=== PATIENT | male | born 1955 | race Asian ===

== ENCOUNTER 2017-06-05 20:52 | Inpatient (IN) | payer OTHER ==
[2017-06-05 22:54] LABS: ADD MAN DIFF? NO
[2017-06-05 22:58] LABS: BASOPHILS % 0.2 % (0.0-2.0); EOSINOPHILS # 0.3 10^3/ul (0.0-0.5); EOSINOPHILS % 2.7 % (0.0-7.0); HEMATOCRIT 42.5 % (42.0-52.0); HEMOGLOBIN 14.9 g/dl (14.0-18.0); LYMPHOCYTES # 1.7 10^3/ul (0.8-2.9); LYMPHOCYTES % 18.5 % (15.0-51.0); MEAN CORPUSCULAR HEMOGLOBIN 31.6 pg (29.0-33.0); MEAN CORPUSCULAR HGB CONC 35.1 g/dl (32.0-37.0); MEAN PLATELET VOLUME 8.5 fl (7.4-10.4); MONOCYTE # 0.6 10^3/ul (0.3-0.9); MONOCYTES % 6.2 % (0.0-11.0); NEUTROPHIL # 6.8 10^3/ul (1.6-7.5); NEUTROPHILS % 72.1 % (39.0-77.0); PLATELET COUNT 259 10^3/UL (140-415); RED BLOOD COUNT 4.72 10^6/ul (4.70-6.10); RED CELL DISTRIBUTION WIDTH 12.2 % (11.5-14.5)
[2017-06-05 22:58] LABS: WHITE BLOOD COUNT 9.4 10^3/ul (4.8-10.8)
[2017-06-05 23:14] LABS: INR 0.94; PARTIAL THROMBOPLASTIN TIME 30.4 Sec (25.0-35.0); PROTIME 12.7 Sec (11.9-14.9)
[2017-06-05 23:16] LABS: ALANINE AMINOTRANSFERASE 44 IU/L (13-69); ALBUMIN 3.8 g/dl (3.3-4.9); ALKALINE PHOSPHATASE 101 IU/L (42-121); ANION GAP 10 (8-16); ASPARTATE AMINO TRANSFERASE 24 IU/L (15-46); BILIRUBIN,INDIRECT 0.5 mg/dl (0-1.1); BILIRUBIN,TOTAL 0.5 mg/dl (0.2-1.3); BLOOD UREA NITROGEN 7 mg/dl (7-20); CALCIUM 9.3 mg/dl (8.4-10.2); CARBON DIOXIDE 26 mmol/L (21-31); CHLORIDE 98 mmol/L (97-110); CREATININE 0.85 mg/dl (0.61-1.24); GLUCOSE 106 mg/dl (70-220); POTASSIUM 3.3 mmol/L (3.5-5.1); SODIUM 131 mmol/L (135-144); TOTAL PROTEIN 6.5 g/dl (6.1-8.1)
[2017-06-05 23:24] LABS: ADD UMIC NO; UR ASCORBIC ACID NEGATIVE (NEGATIVE); UR BILIRUBIN (Dip) NEGATIVE (NEGATIVE); UR BLOOD (Dip) NEGATIVE (NEGATIVE); UR CLARITY CLEAR (CLEAR); UR COLOR STRAW (YELLOW); UR GLUCOSE (Dip) NEGATIVE (NEGATIVE); UR KETONES (Dip) NEGATIVE (NEGATIVE); UR LEUKOCYTE ESTERASE (Dip) NEGATIVE Leu/ul (NEGATIVE); UR NITRITE (Dip) NEGATIVE (NEGATIVE); UR SPECIFIC GRAVITY (Dip) 1.002 (1.003-1.030); UR TOTAL PROTEIN (Dip) NEGATIVE (NEGATIVE); UR UROBILINOGEN (Dip) NEGATIVE (NEGATIVE)
[2017-06-06] MEDS ORDERED: ACETAMINOPHEN 325 MG TAB PO
[2017-06-06] MEDS ORDERED: DOCUSATE SODIUM 100 MG CAP PO
[2017-06-06] MEDS ORDERED: NACL 0.9% 3 ML SYG IV
[2017-06-06] MEDS ORDERED: BISACODYL (EC) 5 MG TAB PO
[2017-06-06] MEDS ORDERED: HYDROCODONE/APAP (5/325) TAB PO
[2017-06-06] MEDS ORDERED: ONDANSETRON 4 MG INJ IV
[2017-06-06 00:12] LABS: LACTIC ACID 1.7 mmol/L (0.5-2.0)
[2017-06-06] MEDS: POTASSIUM CHLORIDE (SR) 20 MEQ TAB PO (00:44)
[2017-06-06] MEDS: VANCOMYCIN 1 GM (PMX) 250 ML IVPB (00:44)
[2017-06-06 01:43] LABS: C-REACTIVE PROTEIN 2.7 mg/dl (0.0-0.9)
[2017-06-06 02:47] LABS: ERYTHROCYTE SEDIMENTATION RATE 10 mm/Hr (0-20)
[2017-06-06] MEDS: LEVOFLOXACIN 750MG/D5W (PMX) 150 ML IVPB (03:00)
[2017-06-06 04:15] LABS: LACTIC ACID 1.4 mmol/L (0.5-2.0)
[2017-06-06 06:13] LABS: ADD MAN DIFF? NO
[2017-06-06 06:17] LABS: BASOPHILS % 0.1 % (0.0-2.0); EOSINOPHILS # 0.2 10^3/ul (0.0-0.5); EOSINOPHILS % 2.2 % (0.0-7.0); HEMATOCRIT 44.1 % (42.0-52.0); HEMOGLOBIN 15.4 g/dl (14.0-18.0); LYMPHOCYTES # 1.2 10^3/ul (0.8-2.9); LYMPHOCYTES % 12.8 % (15.0-51.0); MEAN CORPUSCULAR HEMOGLOBIN 31.6 pg (29.0-33.0); MEAN CORPUSCULAR HGB CONC 34.9 g/dl (32.0-37.0); MEAN CORPUSCULAR VOLUME 90.6 fl (82.0-101.0); MEAN PLATELET VOLUME 8.6 fl (7.4-10.4); MONOCYTE # 0.5 10^3/ul (0.3-0.9); MONOCYTES % 5.2 % (0.0-11.0); NEUTROPHIL # 7.2 10^3/ul (1.6-7.5); NEUTROPHILS % 79.4 % (39.0-77.0); PLATELET COUNT 278 10^3/UL (140-415); RED BLOOD COUNT 4.87 10^6/ul (4.70-6.10); RED CELL DISTRIBUTION WIDTH 12.3 % (11.5-14.5)
[2017-06-06 06:36] LABS: LACTIC ACID 1.3 mmol/L (0.5-2.0)
[2017-06-06 06:44] LABS: ALANINE AMINOTRANSFERASE 38 IU/L (13-69); ALBUMIN 3.6 g/dl (3.3-4.9); ALBUMIN/GLOBULIN RATIO 1.28; ALKALINE PHOSPHATASE 100 IU/L (42-121); ANION GAP 14 (8-16); ASPARTATE AMINO TRANSFERASE 19 IU/L (15-46); BILIRUBIN,INDIRECT 0.6 mg/dl (0-1.1); BILIRUBIN,TOTAL 0.6 mg/dl (0.2-1.3); BLOOD UREA NITROGEN 6 mg/dl (7-20); CALCIUM 9.7 mg/dl (8.4-10.2); CARBON DIOXIDE 24 mmol/L (21-31); CHLORIDE 103 mmol/L (97-110); CHOL/HDL RATIO 4.8 RATIO; CHOLESTEROL 156 mg/dl (100-200); GLUCOSE 111 mg/dl (70-220); HDL CHOLESTEROL 32 mg/dl (30-78); LDL CHOLESTEROL,CALCULATED 106 mg/dl; MAGNESIUM 2.1 mg/dl (1.7-2.5); POTASSIUM 3.8 mmol/L (3.5-5.1); SODIUM 137 mmol/L (135-144); TOTAL PROTEIN 6.4 g/dl (6.1-8.1); TRIGLYCERIDES 89 mg/dl (0-149)
[2017-06-06 08:00] LABS: HEMOGLOBIN A1C 5.6 % (0-5.9)
[2017-06-06] MEDS ORDERED: VANCOMYCIN IV PER PHARMACY XX (08:30)
[2017-06-06 08:48] LABS: LACTIC ACID 1.7 mmol/L (0.5-2.0)
[2017-06-06] MEDS: METHYLPREDNISOLONE 40 MG INJ IV ×2 (09:59→20:31)
[2017-06-06] MEDS: VANCOMYCIN 750 MG in DEXTROSE 5% 150 ML IVPB ×2 (11:34→17:49)
[2017-06-06] MEDS: FAMOTIDINE 20 MG INJ IV (20:32)
[2017-06-06] MEDS: DIPHENHYDRAMINE 50 MG INJ IV (20:35)
[2017-06-07 01:49] LABS: VANCOMYCIN,TROUGH 10.2 ug/ml (10.0-20.0)
[2017-06-07] MEDS: VANCOMYCIN 750 MG in DEXTROSE 5% 150 ML IVPB ×3 (02:23→17:41)
[2017-06-07] MEDS: LEVOFLOXACIN 750MG/D5W (PMX) 150 ML IVPB (04:36)
[2017-06-07] MEDS ORDERED: EUCERIN 113 GM CR TOP ×2 (05:00→18:30)
[2017-06-07 05:37] LABS: ADD MAN DIFF? NO
[2017-06-07 05:44] LABS: WHITE BLOOD COUNT 10.2 10^3/ul (4.8-10.8)
[2017-06-07 05:44] LABS: BASOPHILS % 0.2 % (0.0-2.0); EOSINOPHILS % 0.1 % (0.0-7.0); HEMATOCRIT 41.1 % (42.0-52.0); HEMOGLOBIN 14.1 g/dl (14.0-18.0); LYMPHOCYTES % 10.2 % (15.0-51.0); MEAN CORPUSCULAR HEMOGLOBIN 31.2 pg (29.0-33.0); MEAN CORPUSCULAR HGB CONC 34.3 g/dl (32.0-37.0); MEAN CORPUSCULAR VOLUME 90.9 fl (82.0-101.0); MEAN PLATELET VOLUME 8.5 fl (7.4-10.4); MONOCYTE # 0.4 10^3/ul (0.3-0.9); NEUTROPHIL # 8.7 10^3/ul (1.6-7.5); NEUTROPHILS % 85.1 % (39.0-77.0); PLATELET COUNT 308 10^3/UL (140-415); RED BLOOD COUNT 4.52 10^6/ul (4.70-6.10); RED CELL DISTRIBUTION WIDTH 12.4 % (11.5-14.5)
[2017-06-07] MEDS ORDERED: PANTOPRAZOLE 40 MG INJ IV (06:00)
[2017-06-07 06:05] LABS: ALANINE AMINOTRANSFERASE 39 IU/L (13-69); ALBUMIN 3.5 g/dl (3.3-4.9); ALBUMIN/GLOBULIN RATIO 1.25; ALKALINE PHOSPHATASE 94 IU/L (42-121); ANION GAP 12 (8-16); ASPARTATE AMINO TRANSFERASE 20 IU/L (15-46); BILIRUBIN,INDIRECT 0.2 mg/dl (0-1.1); BILIRUBIN,TOTAL 0.2 mg/dl (0.2-1.3); BLOOD UREA NITROGEN 7 mg/dl (7-20); CALCIUM 10.2 mg/dl (8.4-10.2); CARBON DIOXIDE 25 mmol/L (21-31); CHLORIDE 104 mmol/L (97-110); CREATININE 0.87 mg/dl (0.61-1.24); GLUCOSE 151 mg/dl (70-220); POTASSIUM 3.8 mmol/L (3.5-5.1); SODIUM 137 mmol/L (135-144); TOTAL PROTEIN 6.3 g/dl (6.1-8.1)
[2017-06-07 06:05] LABS: URIC ACID 6.7 mg/dl (3.1-7.9)
[2017-06-07 06:21] LABS: MAGNESIUM 2.1 mg/dl (1.7-2.5)
[2017-06-07 06:21] LABS: PHOSPHORUS 3.3 mg/dl (2.5-4.9)
[2017-06-07] MEDS: FAMOTIDINE 20 MG INJ IV ×2 (08:50→21:30)
[2017-06-07] MEDS: METHYLPREDNISOLONE 40 MG INJ IV ×2 (08:50→21:30)
[2017-06-08] MEDS: VANCOMYCIN 750 MG in DEXTROSE 5% 150 ML IVPB ×3 (03:14→18:22)
[2017-06-08] MEDS: LEVOFLOXACIN 750MG/D5W (PMX) 150 ML IVPB (05:14)
[2017-06-08 06:16] LABS: ADD MAN DIFF? NO
[2017-06-08 06:37] LABS: BASOPHILS % 0.2 % (0.0-2.0); EOSINOPHILS % 0.2 % (0.0-7.0); HEMATOCRIT 41.3 % (42.0-52.0); HEMOGLOBIN 14.4 g/dl (14.0-18.0); LYMPHOCYTES # 1.4 10^3/ul (0.8-2.9); LYMPHOCYTES % 10.9 % (15.0-51.0); MEAN CORPUSCULAR HGB CONC 34.9 g/dl (32.0-37.0); MEAN CORPUSCULAR VOLUME 91.8 fl (82.0-101.0); MEAN PLATELET VOLUME 8.8 fl (7.4-10.4); MONOCYTE # 0.3 10^3/ul (0.3-0.9); MONOCYTES % 2.8 % (0.0-11.0); NEUTROPHIL # 10.6 10^3/ul (1.6-7.5); NEUTROPHILS % 85.6 % (39.0-77.0); PLATELET COUNT 308 10^3/UL (140-415); RED CELL DISTRIBUTION WIDTH 12.8 % (11.5-14.5)
[2017-06-08 06:37] LABS: WHITE BLOOD COUNT 12.4 10^3/ul (4.8-10.8)
[2017-06-08 06:43] LABS: ANION GAP 13 (8-16); BLOOD UREA NITROGEN 12 mg/dl (7-20); CALCIUM 10.3 mg/dl (8.4-10.2); CARBON DIOXIDE 27 mmol/L (21-31); CHLORIDE 105 mmol/L (97-110); CREATININE 0.89 mg/dl (0.61-1.24); GLUCOSE 128 mg/dl (70-220); POTASSIUM 4.1 mmol/L (3.5-5.1); SODIUM 141 mmol/L (135-144)
[2017-06-08 06:46] LABS: PHOSPHORUS 3.7 mg/dl (2.5-4.9)
[2017-06-08 06:46] LABS: MAGNESIUM 2.3 mg/dl (1.7-2.5)
[2017-06-08] MEDS: METHYLPREDNISOLONE 40 MG INJ IV ×2 (09:29→20:09)
[2017-06-08] MEDS: FAMOTIDINE 20 MG INJ IV ×2 (09:29→20:08)
[2017-06-08 12:42] LABS: ANA SCREEN NEGATIVE (NEGATIVE)
[2017-06-08] MEDS: TRIAMCINOLONE ACET 0.1% 15 GM CR TOP (21:32)
[2017-06-09] MEDS: VANCOMYCIN 750 MG in DEXTROSE 5% 150 ML IVPB ×2 (01:39→09:03)
[2017-06-09] MEDS: LEVOFLOXACIN 750MG/D5W (PMX) 150 ML IVPB (03:42)
[2017-06-09] MEDS: METHYLPREDNISOLONE 40 MG INJ IV (09:01)
[2017-06-09] MEDS: FAMOTIDINE 20 MG INJ IV (09:01)
[2017-06-09] MEDS: TRIAMCINOLONE ACET 0.1% 15 GM CR TOP ×2 (09:03→12:40)
== END 2017-06-09 18:10 | disposition home or self-care (01) | DRG 603 ==
LOC: MS2 23:42 → E/R 20:52
DX: L03.115 Cellulitis of right lower limb (principal); R65.10 Systemic inflammatory response syndrome (SIRS) of non-infectious origin without acute organ dysfunction; E87.1 Hypo-osmolality and hyponatremia; L03.114 Cellulitis of left upper limb; L03.113 Cellulitis of right upper limb; L26 Exfoliative dermatitis; L03.116 Cellulitis of left lower limb; M10.9 Gout, unspecified; E87.6 Hypokalemia
CPT/HCPCS: 71045; 80048; 80053; 80061; 80202; 81003; 83036; 83605; 83735; 84100; 84443; 84560; 85025; 85610; 85651; 85730; 86038; 86140; 87040; 87045; 87086; 93005; 96365; 96366; 96367; 99285-25